=== PATIENT | female | born 1950 | race Caucasian/White ===

== ENCOUNTER 2017-06-12 07:50 | Day surgery (SDC) | payer MEDICARE ==
[2017-06-12] MEDS ORDERED: MIDAZOLAM HCL 2MG/2ML VIAL IV ONE (13:41)
[2017-06-12] MEDS ORDERED: PROPOFOL 10 MG/ML VIAL IV ONE (13:41)
[2017-06-12] MEDS ORDERED: ONDANSETRON HCL IV 4 MG/2 ML VIAL IVP ONE (13:41)
[2017-06-12] MEDS ORDERED: LIDOCAINE 2% MDV (20MG/ML) 20ML VIAL IV ONE (13:41)
--- NOTE | 2017-06-14 13:25 | Operative Note ---
DATE OF SURGERY: 06/12/2017 Surgeon: Frantz Nguyen DO Referring physician: Nasim Ruth DO OPERATION: COLONOSCOPY TO THE CECUM WITH COLD SNARE POLYPECTOMY x1. INDICATION: Family history of colon cancer in the patient's mother. She returns at this time after six years from her last colonoscopy. Intravenous sedation was administered by the Department of Anesthesiology and included Diprivan titrated to effect. PROCEDURE: Following informed consent from this alert individual, including a discussion of the risks and benefits of the procedure and the opportunity for the patient to ask questions, the patient was in the left lateral decubitus position. Digital rectal examination was performed. No abnormalities were noted. Following this, the Olympus PCF 180 Video Colonoscope was inserted in the rectum without resistance. The rectal mucosa had a normal appearance with normal folds and distensibility. The sigmoid colon had a 5 mm sessile polyp noted which was removed with cold snare polypectomy and sectioned through the colonoscope into a collection trap. There was scattered diverticula noted in the descending colon and the sigmoid colon as well. The colonoscope was then further advanced up through the bowel to the level of the cecum without much difficulty. The cecum was well defined by noting the appendiceal orifice and the ileocecal valve. The colon preparation was good. Retroflexion in the cecum was endoscopically unremarkable. From this point, the colonoscope was then withdrawn. No additional abnormalities were detected until the rectum was reached. Within the rectum retroflexion accomplished revealed small to moderate-sized internal hemorrhoids. The endoscope was then straightened and withdrawn. The patient tolerated the procedure well and was returned to the recovery area in stable condition. IMPRESSION: 1. A 5 mm sigmoid polyp removed with cold snare polypectomy. 2. Sigmoid diverticulosis. 3. Small to moderate sized internal hemorrhoids. RECOMMENDATIONS: The patient was advised to have a recheck colonoscopy in five years' time or sooner should problems arise pending pathology results today. Followup will also be with Dr. Ruth. As always, thank you for allowing me to participate in the care of your patient. CC: NASIM RUTH D.O. Frantz Nguyen DO [facility]
== END 2017-06-12 09:00 | disposition home or self-care (01) ==
LOC: HOP 07:50
PROVIDERS: ATTEND Internal Medicine Gastroenterology
DX: Z12.11 Encounter for screening for malignant neoplasm of colon (principal); K63.5 Polyp of colon; I10 Essential (primary) hypertension; E03.9 Hypothyroidism, unspecified
CPT/HCPCS: J2405

== ENCOUNTER → 2018-12-28 | Day surgery (SDC) | payer MEDICARE | END | disposition home or self-care (01) | LOC: HOP 07:51 | PROVIDERS: ATTEND Internal Medicine Gastroenterology | DX: Z53.9 Procedure and treatment not carried out, unspecified reason (principal) ==